=== PATIENT | male | born 1975 | race Caucasian/White ===

== ENCOUNTER 2025-03-24 06:52 | Observation (INO) ==
--- NOTE | 2025-03-11 12:31 | Anesthesiology Consultation ---
Date of Service March 11, 2025 Assessment & Plan (1) Encounter for pre-operative examination: Chart Review Chart Review: Acceptable Risk for Surgery (pending DOS EKG ) and Patient NOT seen in Pre Admission Testing -Check EKG stat DOS -Infectious Disease screening: Per PAT nursing assessment on 03/11/25. No known infectious disease contacts in past 10 days or current infectious disease symptoms. No recent travel outside the country. History Surgery Operation Date: 03/24/25 12:25 Proposed Procedures p Robotic Assisted Laparoscopic Partial Nephrectomy, Possible Radical - Left - Tan Worley DO Height/Weight Height: 5 ft 10.5 in Weight: 86.183 kg Allergies Allergy/AdvReac Type Severity Reaction Status Date / Time Penicillins AdvReac Mild Hives Verified 03/11/25 12:04 Medications Home Medications Medication Instructions Recorded Confirmed Last Taken lactobacillus combination no.4 3 3,000 mmu cells PO DAILY 02/10/25 03/11/25 Unknown billion cell capsule (Probiotic) multivitamin 1 tab PO .QOD 02/10/25 03/11/25 Unknown Past Medical History Medical History (Updated 03/11/25 @ 12:28 by Kim aCm PA-C) Emphysema of lung GERD (gastroesophageal reflux disease) Hypercholesterolemia no meds, diet controlled Pulmonary nodule following w/ Dr Lopes- under observation Renal mass Thyroid nodule recent finding Past Family History Family History Mother Diabetes Nephrolithiasis Other Cancer Heart disease Past Surgical History Surgical History H/O foot surgery H/O oral surgery Hx of colonoscopy Social History Smoking Status: Former smoker Smoking cigarettes per day: states quit 03/10/25 Do You Dip or Chew Tobacco: No Hx Alcohol Use: Yes (states quit drinking, last drink 1 week ago) Hx Substance Use: Yes (advised by nursing) substance use type: marijuana Last Used Substance Other:: 03/09/25 Lab Results Anesthesia Preop Results Results Anesthesia Widget: WBC 7.35 K/ul (4.8-10.8) 03/04/25 Hgb 16.0 g/dl (14.0-18.0) 03/04/25 Hct 46.2 % (42.0-52.0) 03/04/25 Plt 254 K/uL (130-400) 03/04/25 Na 140 mmol/L (136-145) 03/04/25 K 3.9 mmol/L (3.5-5.1) 03/04/25 Cl 106 mmol/L (98-107) 03/04/25 CO2 28 mmol/L (21-32) 03/04/25 BUN 10 mg/dl (6-23) 03/04/25 Creat 0.81 mg/dl (0.6-1.4) 03/04/25 Glucose Level 112 mg/dl (70-99(Fasting)) H 03/04/25 Testing Laboratory Results 03/04/25= URINE CULTURE: No growth- less than 1000 colonies/ml Chest X-Ray Date: 06/17/24 Findings: + NAD Stress Test Date: 01/28/25 Type: exercise Stress EKG was negative for myocardial ischemia at MPHR 89% Moderate level of exercise achieved- 10.1 METs achieved Other Testing Chest CT 03/01/25= Several pulmonary nodules, indeterminate in nature. A follow- up chest CT is recommended in 3 months to ensure stability. Mild emphysema. There is a small calcified granuloma in the medial left lung apex and there is also a small calcified granuloma in the lingula. There is no pleural effusion or pneumothorax. There is no sign of pulmonary fibrosis or other diffuse interstitial process. No endobronchial lesion is seen Small thyroid nodule. A follow-up thyroid ultrasound could be obtained
[~2025-03-24 06:52] MED LIST: ALLERGY Noted to ORDERED Medication SCH
[2025-03-24] MEDS: LR 15ML/HR IV SCH (07:12)
[2025-03-24] MEDS ORDERED: GLYCOPYRROLATE 0.2 MG/ML VIAL ONE (07:38)
[2025-03-24] MEDS ORDERED: ROCURONIUM BROMIDE 10 MG/ML 5 ML VIAL IV ONE (07:38)
[2025-03-24] MEDS ORDERED: LIDOCAINE 2% 2 ML VIAL/AMP(20MG/ML) INFIL ONE (07:38)
[2025-03-24] MEDS ORDERED: ONDANSETRON INJ 2 MG/ML 2 ML VIAL ONE (07:38)
[2025-03-24] MEDS ORDERED: PROPOFOL IV EMULSION 10 MG/ML 20 ML VIAL IV ONE (07:38)
[2025-03-24] MEDS ORDERED: DEXAMETHASONE SOD INJ 4 MG/ML VIAL ONE (07:38)
[2025-03-24] MEDS ORDERED: MIDAZOLAM HCL 1 MG/ML 2ML VIAL ONE (07:39)
[2025-03-24] MEDS ORDERED: fentaNYL citrate PF 100 MCG/2 ML VIAL ONE ×2 (07:39→08:35)
--- NOTE | 2025-03-24 07:44 | History & Physical Bridge Note ---
Date of Service March 24, 2025 History & Physical Bridge Note I have examined the patient, reviewed the History & Physical and in the interval since the performance of the History & Physical I have noted the following changes of clinical significance: no changes noted
[2025-03-24] MEDS ORDERED: SUGAMMADEX SODIUM 200 MG/2 ML VIAL IV ONE (07:52)
[2025-03-24] MEDS: ceFAZolin 2000MG 2,000 MG/15 ML SYR IV ONE (08:29)
[2025-03-24] MEDS: ceFAZolin 2,000 MG/15 ML IV PUSH IV ONE (08:29)
[2025-03-24] MEDS ORDERED: KETAMINE HCL 10MG/ML SYR ONE (08:31)
[2025-03-24] MEDS ORDERED: HYDROmorphone INJ 2 MG/ML SYR/VIAL ONE (09:48)
[2025-03-24] MEDS: BUPIVACAINE 0.5 % 5 MG/1 ML MPF 30ML VIAL ONE (11:06)
[2025-03-24] MEDS: TISSEEL FIBRIN SEALANT 10ML TOP ONE (11:07)
[2025-03-24] MEDS: SURGICEL ABSORB HEMOSTAT 2IN X 14IN TOP ONE (11:07)
[2025-03-24] MEDS: FLOSEAL HEMOSTATIC MATRIX 10ML TOP ONE (11:07)
--- NOTE | 2025-03-24 12:03 | Operative Report ---
PG Post Operative Report Pre & Post Diagnosis Operation Date: 03/24/25 08:15 Pre-Op Diagnosis: Left Renal Mass, Pulmonary Nodule Post-Op Diagnosis: Left Renal Mass, Pulmonary Nodule I identified the patient and participated in the time-out.: Yes Procedure Operation Date: 03/24/25 08:15 Actual Procedures p Robotic Assisted Laparoscopic Radical Nephrectomy - Left, Extensive lysis of adhesions. (Left) - Tan Worley, Surgeon Tan Worley, II, DO Fashion Patternmaker GAMALIEL Swartz Estimated Blood Loss 50 Findings Consistent with Post-Op Diagnosis Large lower pole renal mass on left with multiple accessory vessels and duplicated renal vein and artery. Significant adhesion of the omentum to the pelvic tissues and lateral wall. Specimens Left radical kidney Drains 18 Swazi Vidales catheter. Anesthesia Type General Complications none Disposition Disposition: Recovery Room Indications Patient with enhancing left renal mass. Large left lower pole mass appears to involve possibly the hilar region and perihilar tissue. Risk and benefits were discussed at length. Patient elected to undergo robotic assisted laparoscopic partial nephrectomy. Description of Procedure The patient was brought to the operative suite and placed under general endotracheal intubation anesthesia in the supine position. The patient was transferred to the lateral position with the operative side up. At this point, the patient prepped and draped in the usual sterile fashion and a timeout was completed. Preoperative antibiotics of Ancef 2 grams had been given. SARAY's and SCD's were placed on the patient's lower extremities. A catheter was placed using sterile technique. With the time out completed the patient was flexed and the skin was marked. The lateral camera port site was anesthetized. A small incision was made into the skin and subcutaneous tissues. A Varess needle was selected and placed. The needle was easily moved and it was irrigated and aspirated without any issues or concerns for placement. Insufflation commenced. Once insufflated, A robotic port was placed. The cavity was insufflated to 12-15 mmHG. A laparoscopic camera was placed and the abdominal cavity inspected. No bleeding, injury, or other concerning features were noted. At this point, the skin was marked for port placement and 8mm working ports were placed. The skin was anesthetized down to fascia and an approx 1cm incision was made to place the 2 x 8mm ports. A 12 mm field technical assistant ports were also placed in similar fashion under direct visualization above the umbilicus. In the left lower quadrant a 12 mm robotic port was placed under direct visualization utilizing local and incision. The robot was positioned and docked. The camera was placed and all trocars were positioned under direct visualization. Jaky Chisholm was integral in port placement, camera utilization, and docking procedure. She remained in sterile attire and then proceeded to assist the remainder of the case. Jaky Chisholm assumed the drug safety assistant role for the major portion of kidney removal, vessel clamping/ligation, and closure of the abdomen. At this point, I transitioned to the robotic console. The omentum was found to be severely attached to the lower section of the abdomen. Extensive lysis of adhesions and dissection were necessary in order to clear this. Over 20 minutes was necessary to lyse the attachments and adhesions especially down in the lower pelvic region. Once able to be cleared, the descending colon was mobilized medially to expose the retroperitoneum and the area assessed. Adhesions were freed to allow mobilization. A small amount of adhesions were noted from the colon and were freed. These were dissected with blunt technique. Cautery was used to assist dissection and control bleeding. The mass was able to be seen bulging from the retroperitoneal fat. A number of what appeared to be accessory vessels in the retroperitoneal fat were appreciated majority of them appeared to be venous. The retroperitoneal fat was assessed. The ureter and gonadal vein were identified. The ureter was isolated and dissection was taken superiorly. This was followed to the renal pelvis. The Renal Artery and Vein were then cleaned and exposed. The renal hilum was found to be significantly complicated with 2 complete sets of what appeared to be renal artery and vein a smaller lower section and a larger renal artery and vein superior. Additionally there was multiple branches coming off closer to the insertion of the hilum. The perirenal fat anterior to the kidney was then dissected. Due to the multiple vessels around the mass it was decided not to dissect down through the perirenal fat. The mass and surrounding tissues were exposed. The kidney was then further mobilized. The ultrasound probe was placed and the mass further examined. The mass appeared to be involving the deeper tissues going down to what appeared to be the collecting system and Jv hilar fat. Concerned due to its large size and location of possible invasion. Because of this and because of the complexities related to the hilum with numerous vessels it was determined that radical nephrectomy would be most appropriate for the large mass. The inferior artery and vein were first dissected clear in order to allow window and the robotic stapling device using the vascular loads the robotic stapler was then utilized to clamp and ligate the vessels utilizing the stapling device these were then incised and freed. These vessels were inspected. Multiple Hemolock clips were then utilized to isolate small vessels branching off in order to allow further dissection up to the superior vessels. The superior vessels were then assessed. There was what appeared to be an early branching of an upper pole artery and vein going towards the uppermost section of the kidney. The vein and artery were dissected further medially to allow a good window. The adrenal vein appeared to be identified coming off of this renal vein. It was able to be spared with the window that was created. The adrenal itself was able to be dissected from the upper pole segment of the kidney allowing the adrenal gland to be spared with the further dissection. The robotic stapler was then once again selected and the vessels were able to be clamped ligated and incised utilizing the stapling device. 2 stapling loads were necessary in order to take the larger artery and vein. The kidney appropriately blanched. Extensive dissection was then completed. Especially along the lateral edge and inferior edge there was a number of accessory vessels. Attachments to the spleen were further freed. The kidney was mobilized starting from the superior edge moving down along the lateral edge. The posterior dissection had already been completed during the dissection of the vessels. Once these areas were freed the ureter was dissected down in the inferior position. Once down to the area of the pelvis and the crossing of the iliac vessels the tissue was further dissected and freed and a final stapling load was utilized to ligate and incised the ureter and surrounding tissue. The dissection was then taken superiorly along the lateral edge. The kidney was fully freed. And placed down into the pelvic region to inspect the wound bed and vessels. No major issues or areas of bleeding were noted. The larger vessels encountered have been clipped using the Hem-o-denisse clips. Surgicel hemostatic agent sheets were placed under the spleen, near the adrenal gland, and on the vessel stumps. Hemostatic agents Tisseel and Floseal were also placed. Hemostatic agent was also placed on the vessel stumps. No major bleeding or other issues. The entire dissection space was inspected one final time. No bleeding or injuries or areas of concern were noted. No tumor or other concerning features were noted. At this point, the robot was undocked and moved away from the patient. The port sites were all assessed laparoscopically. The midline 12 mm port sites were closed with the [place] Tao device. The other ports were assessed and no issues observed. The 12 mm robotic port incision was opened further exposing fascia which was then opened in order to removed the kidney. The incision was extended in the left lower quadrant. Once extended from the edge of the rectus sheath, the kidney was able to be isolated grasped and removed through the incision. This was sent for pathologic analysis. The area was inspected a final time. No significant bleeding was noted no major areas concern. The fascial layers were closed using a 1-0 PDS suture in a running fashion. After closure of the fascia, a running 1-0 Vicryl suture was used to close the subcutaneous tissues. The skin at each site was closed with the stapling device. The area was cleaned and bandages placed on each incision. The patient was cleaned and bandaged. The patient was moved back into the supine position The patient was cleaned, aroused from anesthesia, and transferred to the pacu in stable condition having tolerated the procedure well with no complications. I was present and participated in all aspects of the procedure. GAMALIEL Swartz was integral in the major portion of the procedure as above. Will plan to observe postoperatively and monitor. Vidales to be removed in the morning. Will plan for staple removal and pathology review in approximately 7 to 10 days. I attest to the content of the Intraoperative Record and any orders documented therein. Any exceptions are noted below.
[2025-03-24] MEDS ORDERED: DROPERIDOL 5 MG/2 ML VIAL IV PRN (12:29)
[2025-03-24] MEDS ORDERED: HYDROmorphone INJ 2 MG/ML SYR/VIAL IV PRN (12:29)
[2025-03-24] MEDS ORDERED: ATROPINE SULFATE 0.1 MG/ML 10ML SYR IV PRN (12:29)
[2025-03-24] MEDS ORDERED: ePHEDrine sulfate 50 MG/ML AMP IV PRN (12:29)
[2025-03-24] MEDS: HYDROmorphone INJ 1 MG/ML SYRINGE ONE (12:30)
[2025-03-24 12:31] LABS: Basophils # (auto) 0.04 K/uL (0.00-0.20); Basophils % (auto) 0.2 %; Eosinophils # (auto) 0.02 K/uL (0.00-0.50); Eosinophils % (auto) 0.1 %; Hematocrit (blood only) 43.8 % (42.0-52.0); Immature Granulocytes # (auto) 0.08 K/uL (0.01-0.20); Immature Granulocytes % (auto) 0.5 %; Lymphocytes # (auto) 2.74 K/uL (1.20-3.40); Lymphocytes % (auto) 16.9 %; Mean Corpuscular Hemoglobin 31.1 pg (25.0-34.0); Mean Corpuscular Hgb Conc 34.2 g/dL (32.0-36.0); Mean Corpuscular Volume 90.9 fL (80.0-100.0); Mean Platelet Volume 10.5 fL (9.4-12.4); Monocytes # (auto) 0.36 K/uL (0.11-0.59); Monocytes % (auto) 2.2 %; Neutrophils # (auto) 13.01 K/uL (1.40-6.50); Neutrophils % (auto) 80.1 %; Platelet Count 209 K/uL (130-400); RDW Coefficient of Variation 12.8 % (11.5-14.5); RDW Standard Deviation 42.9 fL (36.4-46.3); Red Blood Count 4.82 M/uL (4.70-6.10); White Blood Count 16.25 K/ul (4.8-10.8)
[2025-03-24 12:48] LABS: BUN Creatinine Ratio 11.5 (10-20); Calcium 8.8 mg/dl (8.6-10.3); Creatinine Clr Calc Pharmacy 98.4 ml/min; Potassium 4.3 mmol/L (3.5-5.1)
[2025-03-24] MEDS ORDERED: MoRPHine SULFATE 2 MG/ML CARP IV PRN (13:20)
[2025-03-24] MEDS: oxyCODONE HCL IR 5 MG TAB (IMMEDIATE RELEASE) PO PRN ×2 (13:43→22:50)
[2025-03-24] MEDS: ONDANSETRON INJ 2 MG/ML 2 ML VIAL IV PRN (13:44)
[2025-03-24] MEDS: SODIUM CHLORIDE 0.9% 1,000 ML IV SCH (13:44)
--- NOTE | 2025-03-24 15:08 | Anesthesiology Progress Note ---
Date of Service March 24, 2025 Anesthesia Post Procedure Vital Signs Vital Signs: Temp Pulse Pulse Resp BP BP Pulse Ox 03/24/25 14:21 67 16 159/78 H 97 03/24/25 13:49 83 14 160/79 H 96 03/24/25 13:20 36.4 C L 66 16 154/72 H 98 03/24/25 12:55 94 H 18 126/63 96 03/24/25 12:45 68 26 H 138/86 94 03/24/25 12:35 67 17 151/85 H 94 03/24/25 12:25 36.4 C L 81 17 138/85 96 03/24/25 12:15 79 17 164/91 H 96 03/24/25 12:05 61 15 160/91 H 97 03/24/25 11:55 61 17 163/94 H 97 03/24/25 11:45 36.4 C L 68 17 164/95 H 96 03/24/25 07:17 36.8 C 76 20 115/68 96 O2 Del Method O2 Flow Rate 03/24/25 14:21 Nasal Cannula 2 03/24/25 13:49 Nasal Cannula 2 03/24/25 13:20 Nasal Cannula 2 03/24/25 12:55 Nasal Cannula 2 03/24/25 12:45 Nasal Cannula 2 03/24/25 12:35 Nasal Cannula 2 03/24/25 12:25 Nasal Cannula 2 03/24/25 12:15 Room Air 5 03/24/25 12:05 Oxymask 5 03/24/25 11:55 Oxymask 5 03/24/25 11:45 Oxymask 5 03/24/25 07:17 Room Air Pain Intensity Left Lower Abdomen: Pain Intensity: 7 Transfer of Care Handoff Completed per policy Notes Mental Status: alert / awake / arousable Patient Amnestic to Procedure: Yes Nausea / Vomiting: adequately controlled Pain: adequately controlled Airway Patency, RR, SpO2: stable & adequate BP & HR: stable & adequate Hydration State: stable & adequate Anesthetic Complications: no major complications apparent and Pt Satisfied with anesthetic care
[2025-03-24] MEDS: ceFAZolin 2000MG 2,000 MG/15 ML SYR IV SCH (17:58)
[2025-03-24] MEDS ORDERED: NICOTINE POLACRILEX 2 MG GUM MT PRN (18:52)
[2025-03-24] MEDS: NICOTINE 21 MG/24 HR TDSY TD SCH (19:47)
[2025-03-24] MEDS: DOCUSATE SODIUM 100 MG CAP PO SCH (21:02)
[2025-03-24] MEDS: HEPARIN SOD 5,000 UNIT/0.5 ML VIAL SQ SCH (21:02)
[2025-03-24] MEDS: PROMETHAZINE 12.5 MG/50.5 ML BAG IV PRN (21:36)
[2025-03-24] MEDS: LORazepam 0.5 MG TAB PO PRN (22:52)
[2025-03-25] MEDS: MoRPHine SULFATE 2 MG/ML CARP IV PRN (02:07)
[2025-03-25 06:41] LABS: Basophils # (auto) 0.01 K/uL (0.00-0.20); Basophils % (auto) 0.1 %; Hematocrit (blood only) 41.6 % (42.0-52.0); Hemoglobin 14.1 g/dl (14.0-18.0); Immature Granulocytes # (auto) 0.07 K/uL (0.01-0.20); Immature Granulocytes % (auto) 0.4 %; Lymphocytes # (auto) 2.58 K/uL (1.20-3.40); Mean Corpuscular Hemoglobin 31.2 pg (25.0-34.0); Mean Corpuscular Hgb Conc 33.9 g/dL (32.0-36.0); Monocytes # (auto) 1.73 K/uL (0.11-0.59); Monocytes % (auto) 10.7 %; Neutrophils # (auto) 11.72 K/uL (1.40-6.50); Neutrophils % (auto) 72.8 %; Platelet Count 217 K/uL (130-400); RDW Coefficient of Variation 13.2 % (11.5-14.5); RDW Standard Deviation 44.5 fL (36.4-46.3); Red Blood Count 4.52 M/uL (4.70-6.10); White Blood Count 16.11 K/ul (4.8-10.8)
[2025-03-25 07:04] LABS: BUN Creatinine Ratio 9.2 (10-20); Calcium 8.7 mg/dl (8.6-10.3); Creatinine Clr Calc Pharmacy 67.4 ml/min; Potassium 3.9 mmol/L (3.5-5.1)
[2025-03-25] MEDS: ACETAMINOPHEN 325 MG TAB PO PRN (09:08)
--- NOTE | 2025-03-25 11:11 | Urology Progress Note ---
Date of Service March 25, 2025 Assessment & Plan (1) Renal mass: Plan POD #1 s/p Robotic Assisted Laparoscopic Radical Left Nephrectomy and Extensive lysis of adhesions with Dr. Worley Feeling well, progressing as expected Had some nausea/vomiting last night, but feeling better today Pain is managed with medication Remains afebrile and hemodynamically stable Labs today show WBC 16, hemoglobin 14, creatinine up to 1.52 as expected Vidales catheter draining clear yellow urine Plan: Remove Vidales catheter and monitor for void Discontinue IV fluids Advance diet as tolerated Encourage ambulation Continue supportive care/pain management as needed Will reassess later today with possible discharge home pending patient status Admission and Anticipated Discharge Date Admission Date: March 24, 2025 Subjective Patient seen at bedside this morning. Awake and resting in bed on arrival. No acute distress. Reports some nausea/vomiting last night. Feeling better this morning, but had some dry heaves. No vomiting today. Tolerating clear liquid diet. No flatus but some belching. No fevers. Ambulated without issue. Vidales draining clear yellow urine. Pain managed with medication. Review of Systems Constitutional: as per Subjective / HPI Gastrointestinal: as per Subjective / HPI Genitourinary: + as per Subjective / HPI Physical Exam Constitutional: no acute distress Respiratory: no respiratory distress and no labored breathing Gastrointestinal (Abdomen): Abd mildly distended and tender with palpation. Incisions appropriate, philip intact. Musculoskeletal: Head/Neck/Chest: normocephalic Skin: No visible rashes or lesions to exposed skin areas Neurologic: moves all extremities and awake Psychiatric: A+Ox3, euthymic affect Genitourinary: Vidales draining clear yellow urine Results & Data Vital Signs (Past 12 Hours) Vital Signs Temp Pulse Pulse Resp BP Pulse Ox O2 Del Method 03/25/25 08:00 Room Air 03/25/25 07:39 37 C 64 65 15 144/81 H 93 Room Air 03/25/25 02:35 37.1 C 75 20 134/74 97 Room Air PG Care Time/CCT Total # of Minutes Spent Total Time Spent with Patient: Total time spent is greater than 50% in coordination of care (as documented) at patient's floor/unit and/or counseling patient: Coding Level of Care Code None Diagnoses Renal mass N28.89
[2025-03-25 11:49] VITALS: BP 152/78; PULSE 82; RESP 14; TEMP 98.8; O2SAT 96
--- NOTE | 2025-03-25 15:16 | Discharge Summary ---
Date of Service March 25, 2025 Admission HPI Per Admitting Provider 50-year-old male with a left renal mass here for left robot-assisted laparoscopic partial nephrectomy possible radical Admission Exam Per Admitting Provider General: Alert in no acute distress. HEENT: Inspection normal Psychologic: Normal affect. Respiratory: Nonlabored. No use of accessory muscles. Skin: [place] and Dry. No rashes or visible lesions. Abdomen: Soft, nontender Principal Diagnosis Left renal mass Discharge Exam Constitutional well developed and well nourished; no acute distress Respiratory normal respiratory effort; no respiratory distress and no labored breathing Gastrointestinal (Abdomen) Incisions appropriate, philip intact Musculoskeletal Head/Neck/Chest: normocephalic Skin no rashes, warm and dry Neurologic moves all extremities and awake Psychiatric A+Ox3, euthymic affect Discharge Data Allergies Allergy/AdvReac Type Severity Reaction Status Date / Time Penicillins AdvReac Mild Hives Verified 03/24/25 07:05 Procedures Performed Operation Date: 03/24/25 08:15 Actual Procedures p Robotic Assisted Laparoscopic Radical Nephrectomy - Left(Left) - Tan Worley, Hospital Course (1) Renal mass: Plan POD #1 s/p Robotic Assisted Laparoscopic Radical Left Nephrectomy and Extensive lysis of adhesions with Dr. Worley Feeling well, progressing as expected Had some nausea/vomiting last night, but feeling better today Pain is managed with medication Remains afebrile and hemodynamically stable Labs today show WBC 16, hemoglobin 14, creatinine up to 1.52 as expected Vidales catheter draining clear yellow urine Plan: Remove Vidales catheter and monitor for void Discontinue IV fluids Advance diet as tolerated Encourage ambulation Continue supportive care/pain management as needed Will reassess later today with possible discharge home pending patient status Patient reassessed this afternoon Feeling well and eager to go home today Remains afebrile and hemodynamically stable Voiding spontaneously following catheter removal Ambulating without issue Tolerated diet Pain is currently well-controlled Patient is stable for discharge home today. Appropriate postoperative follow-up appointment in place. Total Time Total Time Spent Total Time Spent (In Minutes): 15 Discharge Plan Discharge Items Patient Disposition: Home - Self-Care Reason For Visit: Renal Mass, Pulmonary Nodule Discharge Diagnosis: Renal Mass Condition on Discharge: Good Activity: Per Instructions section Lifting: No more than 10 pounds Bathing Comment: OK to shower. No tub baths or soaks. Sexual Activity: Wait until after follow-up appointment Exercise/Sports: Wait until after follow-up appointment Driving/Machine Use: Do not drive if taking presciption pain medication. Non-emergency contact: Surgeon and Urologist Call non-emergency contact if: you have any medication questions, your symptoms worsen, your pain is worsening, you have a fever, your temperature is above 101, your wound has increased redness, your wound has increased drainage and your wound pain has increased Follow-up/Referrals: Tan Worley DO [Physician] - 04/01/25 11:15 am Kathy Pascual CRNP [Primary Care Provider] - Diet: Regular Addtl Attending Provider Instructions: Please take all medications as prescribed and keep all follow-ups as scheduled. Please call our office at [phone] with any questions, concerns or need to reschedule appointments for any reason. We are happy to assist you. Recovering at home: We recommend having someone with you for the first few days after surgery to help care for you. It is okay to shower tomorrow. Please avoid swimming, bathing or using hot tub until incisions are well healed. Avoid driving until you are not requiring pain medication any further. Walk at least a few times a day. Increase your distance, as you feel able. Stairs in your home are okay. Please avoid strenuous or sexual activity until your follow-up. We recommend using stool softener (i.e. Colace) to prevent constipation and straining, especially the first two weeks post operatively. Call [facility] at [phone] if you experience: Chest pain or trouble breathing (call 267 or go to the hospital). Fever of 101F or higher Symptoms of infection at incision site, including redness or swelling, warmth, or bad-smelling drainage If you are unable to urinate or dark, bloody urine Pain that is not controlled with medicines Pending Studies at Discharge: Yes (pathology) Stand-Alone Forms: [employer], Smoking Cessation Medications and DC Order Prescriptions: New oxycodone 5 mg tablet 5 mg PO Q8H PRN (Reason: pain) Qty: 7 0RF Continued multivitamin Tablet 1 tab PO .QOD Probiotic 3 billion cell capsule 3,000 mmu cells PO DAILY Rx Instructions: administer with a meal Discharge Orders: Discharge Order (Routine); Ordered 03/25/25 Ordered By: Jaky Lance/Other Patient Handouts: Quitting Smoking, Coping with Smoking Withdrawal, Nephrectomy Dc Admission Data Admit Date/Time: 03/24/25 11:57 Attending Provider: Tan Worley Admit Provider: Tan Worley Primary Care Provider: Kathy Pascual Other Interventions: Discharge Summary Assessment (RN) Last Done: 03/25/25 13:38 Coding Level of Care Code 48746 IN/OBS DISCH 30 MIN/LESS Diagnoses Renal mass N28.89
--- NOTE | 2025-03-26 14:57 | Electrocardiogram Report ---
Test Reason : Blood Pressure : */* mmHG Vent. Rate : 70 BPM Atrial Rate : 70 BPM P-R Int : 134 ms QRS Dur : 88 ms QT Int : 376 ms P-R-T Axes : 6 66 67 degrees QTcB Int : 406 ms Normal sinus rhythm Normal ECG No previous ECGs available Confirmed by Kathy Vela (Evelina) on 03/26/2025 2:56:58 PM Referred By: Tan Worley Confirmed By: Kathy Vela
== END 2025-03-25 14:25 | disposition home or self-care (01) ==
LOC: ASU 06:52 → 3E 11:57 → INTOOBSV 11:57